=== PATIENT | female | born 1995 | race Caucasian/White ===

== ENCOUNTER 2016-12-11 07:47 | Emergency (ER) | payer MEDICAID ==
[~2016-12-11] VITALS: Ht 162.6 cm; Wt 63.1 kg
[2016-12-11 08:49] VITALS: BP 139/77
== END 2016-12-11 08:49 | disposition home or self-care (01) ==
LOC: ED 07:47
DX: H61.21 Impacted cerumen, right ear (principal); H92.01 Otalgia, right ear

== ENCOUNTER 2017-09-28 03:45 | Emergency (ER) | payer MEDICAID ==
[~2017-09-28] VITALS: Ht 165.1 cm; Wt 64.9 kg
[2017-09-28 03:53] VITALS: Ht 165.1 cm; Wt 64.9 kg
[2017-09-28 06:56] VITALS: BP 124/64
== END 2017-09-28 06:30 | disposition home or self-care (01) ==
LOC: ED 03:45
DX: R10.2 Pelvic and perineal pain (principal); N89.8 Other specified noninflammatory disorders of vagina
CPT/HCPCS: 87491; 87591; J0696